=== PATIENT | female | born 1990 | race African-American/Black ===

== ENCOUNTER 2018-06-26 11:03 | Emergency (ER) | payer OTHER ==
[~2018-06-26] VITALS: Ht 170.2 cm; Wt 77.1 kg
[2018-06-26 11:08] VITALS: Ht 170.2 cm; Wt 77.1 kg
[2018-06-26 11:55] LABS: BASOPHIL % 0.3 % (0-2); PLATELET COUNT 342 x10^3mcL (130-400)
[2018-06-26 11:58] LABS: RED CELL DISTRIBUTION WIDTH 22.2 % (11.5-14.5)
[2018-06-26 12:30] LABS: ovalocyte/elliptocyte 1+; schistocyte (helmet cell) 1+; target cell (codocyte) 1+
[2018-06-26 12:31] LABS: rbc morphology (normal/abnorm) ABNORMAL (NORMAL)
[2018-06-26 12:50] VITALS: BP 137/89
== END 2018-06-26 12:50 | disposition home or self-care (01) ==
LOC: ED 11:03
PROVIDERS: Emergency Medicine
DX: N92.1 Excessive and frequent menstruation with irregular cycle (principal)
CPT/HCPCS: 36415

== ENCOUNTER 2018-07-03 15:24 | Emergency (ER) | payer OTHER ==
[~2018-07-03] VITALS: Ht 170.2 cm; Wt 78.1 kg
[2018-07-03 15:39] VITALS: Ht 170.2 cm; Wt 78.1 kg
[2018-07-03 17:30] LABS: CALCIUM 8.7 mg/dL (8.5-10.1); CARBON DIOXIDE 25.8 mmol/L (21-32); CHLORIDE SERUM 105 mmol/L (98-107); CREATININE SERUM 1.1 mg/dL (0.6-1.0); GFR1 > 60 mL/min; GLUCOSE SERUM 84 mg/dL (74-106); SODIUM SERUM 138 mmol/L (136-145)
[2018-07-03 17:46] LABS: PLATELET COUNT 356 x10^3mcL (130-400)
[2018-07-03 17:53] LABS: RED CELL DISTRIBUTION WIDTH 24.3 % (11.5-14.5)
[2018-07-03 18:33] LABS: BAND NEUTROPHIL 0 % (0-10); BASOPHIL 0 % (0-2); MONOCYTE 7 % (0-7); SEGMENTED NEUTROPHILS 44 % (37-75); rbc morphology (normal/abnorm) ABNORMAL (NORMAL)
[2018-07-04 01:50] LABS: BASOPHIL % 0.4 % (0-2); PLATELET COUNT 281 x10^3mcL (130-400)
[2018-07-04 01:51] LABS: RED CELL DISTRIBUTION WIDTH 21.8 % (11.5-14.5)
[2018-07-04 02:16] LABS: rbc morphology (normal/abnorm) ABNORMAL (NORMAL)
[2018-07-04 02:40] VITALS: BP 137/76
== END 2018-07-04 02:40 | disposition home or self-care (01) ==
LOC: ED 15:24
PROVIDERS: Emergency Medicine
DX: D64.9 Anemia, unspecified (principal)
CPT/HCPCS: 36415; J7030; P9016